=== PATIENT | male | born 1985 | race Caucasian/White ===

== ENCOUNTER 2019-06-22 09:12 | Emergency (ER) | payer MEDICAID, SELFPAY ==
[2019-06-22 09:14] VITALS: BP 159/84; PULSE 53; RESP 17; TEMP 36.5; O2SAT 100; BMI 22.4
[2019-06-22] MEDS: proMETHazine 25 MG/ML Syringe 12.5 MG IV (09:32)
[2019-06-22] MEDS: 0.9% Normal Saline 1,000 ML 1000 ML IV (09:33)
[2019-06-22 09:43] LABS: Absolute Lymphocyte Count 1.02 X10^3/uL (0.83-4.51); Absolute Neutrophil Count 13.1 X10^3/uL (2.0-7.7); Basophil# 0.06 X10^3/uL; Basophil% 0.4 % (0-1); Eosinophil# 0.01 X10^3/uL; Eosinophils% 0.1 % (0-5); Hematocrit 46.8 % (40-54); Hemoglobin 15.3 g/dL (13.0-16.5); Lymphocyte # 1.02 X10^3/ul (4.0); Lymphocyte % 6.9 % (19-41); Mean Corp Hgb Conc 32.7 g/dL (32-36); Mean Corpuscular Hgb 28.8 pg (27.0-32.0); Monocyte# 0.51 X10^3/uL; Monocyte% 3.5 % (0-10); NRBC Flagged by Analyzer 0 % (0-5); Neutrophil # 13.08 X10^3/uL (2.7-7.7); Neutrophil % 88.5 % (47-70); Platelet Count 317 K/mm3 (150-450); RBC Distribution Width CV 13.5 % (11.6-14.6); RBC Distribution Width SD 43.6 fl (35.1-43.9); Red Blood Count 5.32 M/mm3 (4.6-6.2); White Blood Count 14.8 K/mm3 (4.4-11.0)
[2019-06-22 10:02] LABS: AST(SGOT) 21 U/L (15-37); Alanine Aminotransfer ALT/SGPT 45 U/L (16-61); Albumin, Serum 4.1 g/dL (3.2-5.0); Alkaline Phosphatase 76 U/L (45-117); Anion Gap 8 (5-15); BUN 10 mg/dL (7-18); BUN/Creat Ratio 13.1 RATIO (10-20); Calcium,Total 9.5 mg/dL (8.5-10.1); Chloride 105 mmol/L (98-107); Creatinine, Serum 0.76 mg/dL (0.70-1.30); EST Glomerular Filtration Rate 126 mL/min (>60); Est Glom Filt Rate - Afr Amer 153 mL/min (>60); Estimated Creatinine Clearance 147.83 ml/min; Globulin 4.2 g/dL (2.2-4.2); Glucose 140 mg/dL (74-106); Lipase 114 U/L (73-393); Potassium 4.3 mmol/L (3.5-5.1); Protein, Total 8.3 g/dL (6.4-8.2); Sodium Level 139 mmol/L (136-145)
--- NOTE | 2019-06-22 10:11 | ED.VISSUMM ---
- ER Visit Summary Date of Service: 06/22/19 Chief Complaint: [Nausea and vomiting] History of Present Illness: The patient is a 34 M [presents to the emergency department with vomiting that started around 1:30 AM. Patient states he is thrown up about 4 5 times. He continues to complain of nausea. Patient has had chills. He denies any fever. He denies any diarrhea. He denies any abdominal pain. Denies eating any undercooked foods or suspicious foods. He has no medical history. No sick contacts. Patient use 1 of his 's Zofran which did not give him any relief.] Physical Examination: [HEENT-PERRLA, EOMI. Cranial nerves II through XII grossly intact. TMs clear. Mucous membranes moist. No adenopathy. Cardiovascular-regular rate and rhythm without murmur or ectopy Lungs-clear to auscultation, chest wall stable without crepitus or subcu emphysema Abdomen-normoactive bowel sounds, soft, nontender, no rebound or rigidity, no peritoneal signs. Extremities-intact ?4, normal range of motion, normal pulses, atraumatic] Test Results: [CBC with differential obtained showed a slightly elevated white blood cell count of 14.8, hemoglobin 15, hematocrit 47, platelets 317. Chemistries unremarkable. LFTs normal. Lipase was 114.] Emergency Department Course and Treatment: [Patient had an IV line established and was given a liter of the same fluid bolus. Patient was given Phenergan 12.5 mg IV.] Treatment Plan: [Patient will be given a prescription for Phenergan. Patient advised to follow-up with primary care physician in 3 to 5 days. Advised to return if persistent vomiting, dehydration, abdominal pain, or condition should worsen anyway.] Disposition: [Discharged home in stable condition] Impression: [Vomiting-suspect viral etiology] This note was generated with [employer] dictation software. It may contain incorrect words, spelling, and punctuation that were not noted in review of the chart prior to signing ED Disposition - Plan for ED Patient: Referrals: Anders Chandler DO [Primary Care Provider] -
--- NOTE | 2019-06-22 10:13 | DCINST.ED_ITS ---
ED Disposition - Plan for ED Patient: Instructions: VOMITING (8y-Adult) Prescriptions: proMETHazine tablet [Phenergan] 25 mg PO Q6H PRN PRN #10 tab PRN Reason: Nausea Transmission Status: Pending to [facility]/pharmacy #[id number] Referrals: Anders Chandler DO [Primary Care Provider] - 3-5 Days
[2019-06-22 10:20] VITALS: BP 132/84; PULSE 85; RESP 16; O2SAT 97
== END 2019-06-22 10:22 | disposition home or self-care (01) ==
PROVIDERS: Emergency Provider Emergency Medicine; PCP Family Medicine
DX: R11.2 Nausea with vomiting, unspecified (principal); Z72.0 Tobacco use
CPT/HCPCS: 80053; 83690; 85025; 96361; 96374; 96375; 99283; J7030; A4216

== ENCOUNTER → 2019-06-30 08:18 | Outpatient (CLI) | payer MEDICAID, SELFPAY ==
[2019-06-22 09:14] VITALS: BMI 22.4
--- NOTE | 2019-06-30 08:21 | RAD_ITS ---
STUDY: AIR-CONTRAST UPPER GI SERIES. REASON FOR EXAM: Male, 34 years old. Nausea, heartburn, feels like something stuck in throat -- bitter taste in mouth -- started 06-22-19 FLUOROSCOPY TIME (if supplied): ( 44 seconds. ) minutes/seconds TECHNIQUE: The patient ingested barium. Multiple images of the esophagus, stomach and duodenum were obtained. COMPARISON: None. FINDINGS: The esophagus is unremarkable. There is no evidence of gastroesophageal reflux. No mass lesion is seen. The stomach and duodenum are unremarkable. There is no evidence of ulceration. No mass lesions present. RAD/Upper GI Dual Contrast IMPRESSION: Unremarkable air-contrast upper GI series. Electronically Signed: Michael Kapoor, at 11:03 EDT , Service support ,
== END ==
DX: R10.13 Epigastric pain (principal)
CPT/HCPCS: 74246

== ENCOUNTER → 2019-07-01 09:40 | Outpatient (CLI) | payer MEDICAID, SELFPAY ==
[2019-06-22 09:14] VITALS: BMI 22.4
--- NOTE | 2019-07-01 09:44 | US_ITS ---
STUDY: ABDOMINAL ULTRASOUND - RIGHT UPPER QUADRANT REASON FOR VISIT: Male, 34 years old NAUSEA-DYSPEPIA- MIDLINE TENDERNESS TECHNIQUE: Ultrasound evaluation of the right upper quadrant was performed with real-time and static paz-scale imaging. TECHNICAL QUALITY: Adequate. COMPARISON: None. FINDINGS: Liver: The liver measures 16.3 cm. There is normal echogenicity of the liver. The bile ducts are within normal limits. There is hepatic color flow. The direction of portal flow is hepatopetal. There is no demonstrated mass lesion. Gallbladder: Normal distended gallbladder. The gallbladder wall measures 3.0 mm. There is a negative sonographic Still''s sign. There is no pericholecystic fluid. There are no gallstones. Common Bile Duct (C.B.D.): The common bile duct measures 4.0 mm. Pancreas: Normal size of the head, body and tail of the pancreas. There is normal echogenicity of the pancreas. There is no demonstrated pancreatic mass or cyst. Right Kidney: Normal size of the right kidney. The right kidney measures 11.7 cm x 6.5 cm x 4.6 cm. Normal renal cortex. The right cortex measures 1.3 cm. There is no demonstrated renal mass or cyst. There is no right hydronephrosis. US/Abdomen Limited IMPRESSION: Normal right upper quadrant ultrasound examination. Electronically Signed: Michael Kapoor, at 13:36 EDT , Service support ,
== END ==
DX: K31.9 Disease of stomach and duodenum, unspecified (principal)
CPT/HCPCS: 76705

== ENCOUNTER 2019-07-27 15:26 | Emergency (ER) | payer MEDICAID, SELFPAY ==
[2019-07-27 15:26] VITALS: BP 112/75; PULSE 76; RESP 16; TEMP 36.5
[2019-07-27 15:27] VITALS: BP 112/75; PULSE 76; RESP 16; TEMP 36.5; BMI 22.4
--- NOTE | 2019-07-27 16:12 | ED.VISSUMM ---
- ER Visit Summary Date of Service: 07/27/19 Chief Complaint: Toe bleeding History of Present Illness: The patient is a 34 M no significant past medical history. Patient's had intermittent rectal bleeding for the last 1-1/2 months. He has had blood work that was unremarkable. He has not had upper or lower endoscopy done. He denies any pain. He is on no blood thinners. He denies any hematemesis nor melena. Physical Examination: Well-appearing 34-year-old male. No acute distress. Vital signs are stable afebrile. H EENT exam normal. Neck nontender. Lungs clear to auscultation bilaterally. Heart regular rhythm no murmur. Abdomen soft nontender normal bowel sounds no peritoneal signs. Patient is moving all 4 extremities. Skin unremarkable. Rectal exam normal rectal tone. No mass. No blood. Currently there is no black or bloody stool. There are no external hemorrhoids. Neurologically is awake and alert with no focal motor deficits. Test Results: CBC shows no acute abnormality. White count of 10. Hemoglobin 13.3. Hematocrit 40. Emergency Department Course and Treatment: Patient clinically looks well. Blood count of be obtained. Lungs had stable does not appear that he is having significant blood loss be discharged home with outpatient follow-up to have colonoscopy done. Repeat exam patient is doing well at 5:01 PM. Treatment Plan: Outpatient follow-up for colonoscopy. Disposition: Discharge Impression: Rectal bleeding of uncertain etiology This note was generated with [employer] dictation software. It may contain incorrect words, spelling, and punctuation that were not noted in review of the chart prior to signing ED Disposition - Plan for ED Patient: Referrals: Kale Cosby MD [Primary Care Provider] -
[2019-07-27 16:25] LABS: Hematocrit 40.9 % (40-54); Hemoglobin 13.3 g/dL (13.0-16.5); Mean Corp Hgb Conc 32.5 g/dL (32-36); Mean Corpuscular Hgb 28.5 pg (27.0-32.0); Mean Corpuscular Volume 87.8 fL (80-94); Mean Platelet Vol. 10.8 fl (6.2-12.0); Platelet Count 226 K/mm3 (150-450); RBC Distribution Width CV 13.9 % (11.6-14.6); RBC Distribution Width SD 44.7 fl (35.1-43.9); Red Blood Count 4.66 M/mm3 (4.6-6.2); White Blood Count 10.4 K/mm3 (4.4-11.0)
--- NOTE | 2019-07-27 17:04 | ED.DEP ---
ED Disposition - Plan for ED Patient: Disposition: Home or Assisted Living Instructions: ED Hematochezia Stable Referrals: Jaciel Jackson MD [STAFF PHYSICIAN] - As soon as possible Additional Instructions: Call and follow-up with Dr. Jaciel Jackson to get an appointment for possible colonoscopy.
[2019-07-27 17:20] VITALS: BP 125/67; PULSE 58; RESP 16; O2SAT 98
== END 2019-07-27 17:21 | disposition home or self-care (01) ==
PROVIDERS: Emergency Provider Emergency Medicine
DX: K62.5 Hemorrhage of anus and rectum (principal); Z72.0 Tobacco use
CPT/HCPCS: 85027; 99283; A4216

== ENCOUNTER 2019-08-10 06:49 | Day surgery (SDC) | payer MEDICAID, SELFPAY ==
[2019-08-03 08:11] VITALS: BMI 22.4
[2019-08-10 07:09] VITALS: BP 121/61; PULSE 58; RESP 15; TEMP 36.2; O2SAT 100; BMI 22.1
[2019-08-10] MEDS: Lactated Ringers 1,000 ML 100 ML IV (07:19)
--- NOTE | 2019-08-10 07:42 | HP.PCM_ITS ---
Problem List (1) GI bleed Status: Acute Qualifiers: GI bleed type/associated pathology: anorectal hemorrhage Qualified Code(s): K62.5 - Hemorrhage of anus and rectum History and Physical Date of Admission: 08/10/19 Intake Vital Signs 08/03/19 BMI 22.4 Intake Visit Reasons: F/U ER 07/26 VISIT [facility] RECTAL BLEEDING/TELE. Chief Complaint: Rectal bleeding and abdominal pain with nausea Allergies No Known Allergies Allergy (Verified 06/22/19 09:13) FORMERLY [facility], 1928–1983 Social History (Updated 08/03/19 @ 08:[address] Jaciel Jackson MD) Smoking Status: Current some day smoker HPI HPI Chief Complaint: Rectal bleeding and abdominal pain with nausea Details: Patient was informed that this visit will be billed to patient. This visit was conducted during - pandemic. CONSTANTINE ASH, is a 34 M who presents to the office today for rectal bleeding. The patient was in the emergency room after having bleeding with clots. The patient reports is been going on for about 2 months. He is having lower abdominal pain as well as nausea. He is experiencing bright red and dark red blood with occasional clots. He says that he is never had this problem in the past. He denies any family history of colon cancer. He says that nothing is making it worse or better. There is no radiation of the pain. ROS Const Constitutional: No anorexia, fatigue or abnormal sleep pattern ENT ENT: No abnormal hearing Resp Respiratory: No cough, change in phlegm color or chest congestion Cardio Cardiology: No chest pain at rest Gastro GI: Positive for abdominal pain, constipation, diarrhea, blood in stool, Black,tarry stools and nausea/dyspepsia Genitourinary Male: No difficulty urinating Musc Musculoskeletal: No abnormal walking or joint swelling Skin Skin: No hair loss, change in hair or yellowing of the skin Neuro Neurology: No abnormal walking or abnormal hearing Psych Psychiatric: No abnormal sleep pattern Endo Endocrine: No fatigue Exam Const General: cooperative, healthy appearing, comfortable Chest Chest palpation & inspection: normal inspection of the chest Resp Effort & Inspection: normal respiratory effort GI Inspection: normal to inspection Assessment & Plan Problems 1. Blood in stool K92.1 2. Lower abdominal pain R10.30 Plan Patient has noted that he has had blood in his stool for about 2 months. He is also having nausea and lower abdominal pain. He was in the emergency room and had an ultrasound which showed no gallstones or abnormalities with the gallbladder. The patient was started on promethazine with no improvement. Patient is experiencing nausea as well as bleeding per rectum. I recommend EGD and colonoscopy and I did start him on a PPI. I explained endoscopy in detail to the patient. I explained the risks including but not limited to stroke or heart attack with anesthesia, perforation of the GI tract, bleeding, infection. I explained that any of these could necessitate further emergency surgery. The patient understands and all questions were answered sufficiently. The patient wishes to proceed with procedure. On 06/30/2019 the [facility] ([facility]) Public Order signed by [facility] Director Chata Gonzales M.D., regarding the Management of Non-Essential Surgeries and Procedures for the purpose of preserving Personal Protective Equipment (PPE) and critical hospital capacity and resources within [place] went into effect as of 07/01/2019 at 5:00PM. According to the [facility] Public Order: This action will remain in full force and effect until the State of Emergency declared by the Governor no longer exists or the Director of the [facility] rescinds or modifies this Order. This [facility] order stated all non-essential or elective surgeries and procedures that utilize PPE should be delayed unless there is undue risk to the current or future health of a patient. After reviewing the aforementioned [facility] Public Order and the patients clinical case, I have determined that the scheduled procedure meets the criteria to go forward. Jaciel Jackson MD Pager: [facility] [address] [place] [address], [place] [address] Office: Addendum: I have re-examined the patient. There are no clinical changes since date of exam. Physical exam: Patient is alert and oriented x3. Lungs are clear to auscultation bilaterally and abdomen is soft and nontender nondistended. Jaciel Jackson MD Pager: [facility] [address] [place] [address], [address] [place] [address] Office:
--- NOTE | 2019-08-10 08:05 | EGD_PTH ---
PATIENT: CONSTANTINE ASH LOC: EN U#:[id number] AGE/SX: 34/M ROOM: RE08/10/[address]: Dr. Jaciel Jackson MD : 1985 BED: DIS: 08/10/2019 SPEC #: [id number] RECD: 08/10/19 11:12 STATUS: DESEAN MADDIE #: [id number] KRISTINA: 08/10/19 08:[address]: Jaciel Jackson DEPT: SURGICAL PATHOLOGY RECD BY: Cherry Jimenez ENTERED: 08/10/19 12:07 SP TYPE: EGD BIOPSY OTHR DR: Dr. Kale Cosby MD Tissues: A - Gastric mucous membrane B - Rectum, NOS Procedures: Special Stain Group II Surgery Specimen Level IV Alcian Blue/PAS (control) HEADER OPERATION: Colonoscopy, EGD ([facility] [place] PRE-OP DIAGNOSIS: Abdominal pain; blood in stool TISSUE SUBMITTED: A - GE junction biopsy, B - Rectal polyps MICROSCOPIC DIAGNOSIS A. GE junction, biopsy: Chronic inflammation. Focal changes of reflux. No evidence of Church's specialized epithelium. See comment. B. Rectal polyps, biopsy: Fragments of tubular adenoma. AM:blayne 08/11/19 COMMENT A. Alcian blue/PAS stain with matched control supports the above diagnosis. MICROSCOPIC DESCRIPTION Slides are reviewed. GROSS DESCRIPTION A - Received in fixative is one container labeled with the patient's name and designated GE junction biopsy. The specimen consists of one irregular fragment of light garcia soft tissue that measures 0.3 x 0.3 x 0.1 cm. The specimen is totally submitted in one cassette. B - Received in fixative is one container labeled with the patient's name and designated rectal polyps. The specimen consists of two irregular fragments of light garcia soft tissue that in aggregate measure 1 x 0.5 x 0.3 cm. The specimen is totally submitted in one cassette. / AM:blayne 08/10/19 TC:5 CPT: 55414 x2, 03839 x1
[2019-08-10 08:32] VITALS: BP 121/61; BP 128/102; PULSE 55; RESP 14; TEMP 36.2; O2SAT 98
[2019-08-10 08:35] VITALS: BP 121/61; BP 143/130; PULSE 60; RESP 15; O2SAT 100
[2019-08-10 08:40] VITALS: BP 121/61; BP 93/53; PULSE 53; RESP 16; O2SAT 98
[2019-08-10 08:45] VITALS: BP 109/48; BP 121/61; PULSE 52; RESP 16; TEMP 36.5; O2SAT 100
[2019-08-10 09:14] VITALS: BP 121/61
--- NOTE | 2019-08-12 12:29 | OP.CCLET_ITS ---
08/12/2019 Kael Cosby Re : Colonoscopy procedure for Martin Ness Dear Alea This procedure was performed on Saturday, August 10, 2019. My impressions and recommendations are as follows: Impressions : - One polyp in the rectum, removed with a hot snare. Resected and retrieved. - Internal hemorrhoids. - The examination was otherwise normal on direct and retroflexion views. Recommendations : - Discharge patient to home. - Resume previous diet. - Continue present medications. - Repeat colonoscopy for surveillance based on pathology results. My findings are described in the full procedure note, which is enclosed. If I can be of further assistance, please feel free to contact me at Doctor phone number(s): , Work: . Sincerely, Jaciel Jackson MD 08/10/2019 8:33:53 AM This report has been signed electronically.
--- NOTE | 2019-08-12 12:29 | OP.COLON_ITS ---
Patient Name: Martin Ness Procedure Date: 08/10/2019 8:15 AM Date of : 1985 Age: 34 Procedure: Colonoscopy Indications: Hematochezia, Melena Providers: Jaciel Jackson MD Medicines: Monitored Anesthesia Care Patient Profile: This is a 34 year old male. Refer to note in patient chart for documentation of history and physical. Last Colonoscopy: none. The patient's first colonoscopy is today. Complications: No immediate complications. Estimated blood loss: Minimal. Procedure: Pre-Anesthesia Assessment: - Prior to the procedure, a History and Physical was performed, and patient medications and allergies were reviewed. The patient's tolerance of previous anesthesia was also reviewed. The risks and benefits of the procedure and the sedation options and risks were discussed with the patient. All questions were answered, and informed consent was obtained. Prior Anticoagulants: The patient has taken no previous anticoagulant or antiplatelet agents. After reviewing the risks and benefits, the patient was deemed in satisfactory condition to undergo the procedure. After I obtained informed consent, the scope was passed under direct vision. Throughout the procedure, the patient's blood pressure, pulse, and oxygen saturations were monitored continuously. The Colonoscope was introduced through the anus and advanced to the cecum, identified by appendiceal orifice and ileocecal valve. The colonoscopy was performed without difficulty. The patient tolerated the procedure well. The quality of the bowel preparation was good. Scope In: 8:17:28 AM Scope Withdrawal Time 0 hours 5 minutes 29 seconds Scope Out: 8:27:13 AM Total Procedure Duration Time 0 hours 9 minutes 45 seconds Findings: A polyp was found in the rectum. The polyp was pedunculated. The polyp was removed with a hot snare. Resection and retrieval were complete. Internal hemorrhoids were found during retroflexion. The hemorrhoids were Grade II (internal hemorrhoids that prolapse but reduce spontaneously). The exam was otherwise without abnormality on direct and retroflexion views. Impression: - One polyp in the rectum, removed with a hot snare. Resected and retrieved. - Internal hemorrhoids. - The examination was otherwise normal on direct and retroflexion views. Recommendation: - Discharge patient to home. - Resume previous diet. - Continue present medications. - Repeat colonoscopy for surveillance based on pathology results. Procedure Code(s): --- Professional --- 37409, Colonoscopy, flexible; with removal of tumor(s), polyp(s), or other lesion(s) by snare technique Diagnosis Code(s): --- Professional --- K62.1, Rectal polyp K64.1, Second degree hemorrhoids K92.1, Melena (includes Hematochezia) CPT copyright 2017 [employer]. All rights reserved. The codes documented in this report are preliminary and upon medical assisting instructor review may be revised to meet current compliance requirements. Jaciel Jackson MD 08/10/2019 8:33:53 AM This report has been signed electronically. Number of Addenda: 0 Note Initiated On: 08/10/2019 8:15 AM
--- NOTE | 2019-08-12 12:29 | OP.EGD_ITS ---
Patient Name: Martin Ness Procedure Date: 08/10/2019 7:59 AM Date of : 1985 Age: 34 Procedure: Upper GI endoscopy Indications: Hematochezia, Melena Providers: Jaciel Jackson MD Medicines: Monitored Anesthesia Care Patient Profile: This is a 34 year old male. Refer to note in patient chart for documentation of history and physical. Complications: No immediate complications. Estimated blood loss: Minimal. Procedure: Pre-Anesthesia Assessment: - Prior to the procedure, a History and Physical was performed, and patient medications and allergies were reviewed. The patient's tolerance of previous anesthesia was also reviewed. The risks and benefits of the procedure and the sedation options and risks were discussed with the patient. All questions were answered, and informed consent was obtained. Prior Anticoagulants: The patient has taken no previous anticoagulant or antiplatelet agents. After reviewing the risks and benefits, the patient was deemed in satisfactory condition to undergo the procedure. After obtaining informed consent, the endoscope was passed under direct vision. Throughout the procedure, the patient's blood pressure, pulse, and oxygen saturations were monitored continuously. The gastroscope was introduced through the mouth, and advanced to the second part of duodenum. The upper GI endoscopy was accomplished without difficulty. The patient tolerated the procedure well. Scope In: 8:12:18 AM Scope Out: 8:14:45 AM Total Procedure Duration Time 0 hours 2 minutes 27 seconds Findings: Two linear esophageal ulcers with no bleeding and no stigmata of recent bleeding were found. Biopsies were taken with a cold forceps for histology. The stomach was normal. The examined duodenum was normal. Impression: - Non-bleeding esophageal ulcers. Biopsied. - Normal stomach. - Normal examined duodenum. Recommendation: - Resume previous diet. - Continue present medications. Procedure Code(s): --- Professional --- 94428, Esophagogastroduodenoscopy, flexible, transoral; with biopsy, single or multiple Diagnosis Code(s): --- Professional --- K22.10, Ulcer of esophagus without bleeding K92.1, Melena (includes Hematochezia) CPT copyright 2017 [employer]. All rights reserved. The codes documented in this report are preliminary and upon crankshaft balancer review may be revised to meet current compliance requirements. Jaciel Jackson MD 08/10/2019 8:32:08 AM This report has been signed electronically. Number of Addenda: 0 Note Initiated On: 08/10/2019 7:59 AM
--- NOTE | 2019-08-12 12:29 | OP.CCLET_ITS ---
08/12/2019 Kale Cosby Re : Upper GI endoscopy procedure for Martin Ness Dear Alea This procedure was performed on Saturday, August 10, 2019. My impressions and recommendations are as follows: Impressions : - Non-bleeding esophageal ulcers. Biopsied. - Normal stomach. - Normal examined duodenum. Recommendations : - Resume previous diet. - Continue present medications. My findings are described in the full procedure note, which is enclosed. If I can be of further assistance, please feel free to contact me at Doctor phone number(s): , Work: . Sincerely, Jaciel Jackson MD 08/10/2019 8:32:08 AM This report has been signed electronically.
== END 2019-08-10 09:15 | disposition home or self-care (01) ==
LOC: EN 06:52 → AC 06:52
PROVIDERS: Visit Provider Surgery
PROC: 0DJD8ZZ Inspection of Lower Intestinal Tract, Via Natural or Artificial Opening Endoscopic (ICD-10-PCS; CPT 45378; principal; 2019-08-10 08:00)
DX: D12.8 Benign neoplasm of rectum (principal); K22.10 Ulcer of esophagus without bleeding; K64.1 Second degree hemorrhoids; K92.1 Melena; F43.21 Adjustment disorder with depressed mood; F17.290 Nicotine dependence, other tobacco product, uncomplicated
CPT/HCPCS: 43239; 45385; 88305; 88313; J7120; J2405

== ENCOUNTER 2023-03-22 14:37 | Emergency (ER) | payer MEDICAID, SELFPAY ==
[2023-03-22 14:38] VITALS: BP 155/95; PULSE 95; RESP 16; TEMP 36.6; O2SAT 99; BMI 25.9
[2023-03-22 16:03] VITALS: BP 132/78; PULSE 98; RESP 14; O2SAT 100
--- NOTE | 2023-03-22 16:28 | RAD_ITS ---
INDICATION: Injury/Pain EXAMINATION/TECHNIQUE: X-RAY - RIGHT HAND XR Fingers 3 VIEWS COMPARISON: FINDINGS: SOFT TISSUES: There is a laceration at the midportion of the fifth finger. No radiopaque foreign body. BONES/JOINTS: No acute fracture or subluxation.. Normal alignment. Preservation of the joint space.. No sclerotic or destructive changes observed. RAD/Finger(s) Min 2 Views IMPRESSION: Laceration of the fifth finger. Electronically Signed: Mario Centeno DO at 16:55 EST ,
--- NOTE | 2023-03-22 16:40 | EDS_ITS ---
HPI History of Present Illness Chief Complaint: Laceration Informant: patient Narrative Narrative: Patient is a 37-year-old male, [id number] with unknown last tetanus status presenting with injury to his right thumb and pinky finger. He was using gardening selene at work. This is a work-related injury. He accidentally cut his right thumb and right pinky finger. He initially went to urgent care however there they were concerned about a tendon injury and recommend he come to the emergency room. He has no other complaints or injuries reported at this time. Tetanus Immunization: Unknown [facility] Medical History Acute anxiety Depression Home Medications omeprazole 20 mg capsule,delayed release 20 mg PO DAILY #60 caps 08/03/19 [Rx Last Taken Unknown] naproxen sodium 220 mg tablet 220 mg PO BID 08/06/19 [History Last Taken Unknown] oxazepam 10 mg capsule 10 mg PO TID 03/22/23 [History Last Taken Unknown] Allergy/AdvReac Type Severity Reaction Status Date / Time No Known Allergies Allergy Verified 03/22/23 14:38 Social History Smoking Status: Current every day smoker tobacco type: cigarettes ROS ROS ED Constitutional Constitutional ED: Denies chills or fever(s) Gastrointestinal Gastrointestinal: Denies nausea or vomiting Musculoskeletal Musculoskeletal: Reports other Details: right 1st an d5th finger pain Integumentary Reports other Details: laceration to right 1st and 5th fingers Neurologic Neurologic: Reports paresthesias Psychiatric Psychiatric: Denies anxiety Hematologic/Lymphatic Hematologic/Lymphatic: Denies easy bleeding or easy bruising EXAM Physical Exam Const Vital Signs: 03/22/23 14:38 03/22/23 16:03 03/22/23 18:29 Temperature 97.8 F Temperature Source Temporal Pulse Rate 95 98 91 Respiratory Rate 16 14 14 Blood Pressure 155/95 H 132/78 H 139/67 H Blood Pressure Mean 115 96 91 Pulse Ox 99 100 99 Oxygen Delivery Method Room Air Room Air Positive well nourished and well developed General Appearance ED: well developed and NAD HEENT atraumatic Neck full ROM Chest Wall inspection of chest normal Resp normal respiratory effort Cardio regular rhythm Rate: regular rate Extremity normal to inspection and full ROM Extremity Narrative: Normal extensor and flexor mechanism specifically of the right fifth finger and the thumb. No obvious tendinous injury General Extremety ED: Negative for deformity General Extremity: Negative for deformity Neuro oriented x3 and moves all extremities Neuro Narrative: subjective paresthesia to the distal aspect of the right fifth finger Psych mental status grossly normal and thought process normal Skin Skin Narrative: 1.5 cm slightly irregular laceration to the medial aspect of the thumb overlying the interphalangeal joint. Approximately 1 cm of it is full-thickness. Of the right fifth finger along the medial aspect level of the PIP there is a 2 cm full-thickness laceration with exposure of vessel but no active bleeding. On the lateral aspect at the same level there is a 1 cm full-thickness laceration as well. PROC Procedures Lacerations right thumb : Length: 0.59 in Depth: Skin Shape: Linear Prep: Chlorhexadine Laceration repair: Nerve block Irrigated (ml): 250 Number of Sutures/[place]: 2 Suture Information: Ethilon, Simple and 4-0 right pinky : Length: 1.18 in Depth: Sub Q Shape: Linear Prep: Chlorhexadine Laceration repair: Digital block, Lidocaine and Skin sutures Irrigated (ml): 250 Number of Sutures/[place]: 5 Suture Information: Ethilon, Simple and 4-0 MDM MDM MDM Narrative Medical decision making narrative: Patient is evaluated for lacerations to his right thumb and pinky fingers. X- ray obtained to rule out any associated fracture. Hand is soaked and thoroughly. Tetanus is updated. No obvious tenderness injury or deformity. I do not think it needs an emergent hand evaluation/transfer. Was given Motrin in the ER with adequate pain control. See procedure note for suture repair. Patient given return precautions, signs of infection and suture care instructions. Charged home in stable and improved condition. Placed in a finger splint for the pinky finger. Radiography Diagnostic Testing: Clinical Impression(s) from Imaging Studies Finger X-Ray 03/22/23 16:28 IMPRESSION: Laceration of the fifth finger. Electronically Signed: Mario Centeno DO at 16:55 EST Reading Location ID and State: [facility] / [place] Tel [phone], Service support , Discharge Plan Triage Chief Complaint: Laceration ED Provider: Iona Zaragoza Dx/Rx/DC Orders Clinical Impression: Laceration of right little finger, Laceration of right thumb Instructions: ED Laceration, Hand: All Closures Prescriptions: No Action omeprazole 20 mg capsule,delayed release(DR/EC) 20 mg PO DAILY Qty: 60 2RF oxazepam 10 mg capsule 10 mg PO TID naproxen sodium 220 MG tablet 220 mg PO BID Primary Care Provider: Care Physician,No Primary Referrals: [facility] [Group of Physicians] - 10 Day for suture removal Care Physician,No Primary [Primary Care Provider] - Activity Restrictions/Additional Instructions: Sutures need removed in approximately 10 days. Alternate ibuprofen and Tylenol for pain. Disposition Disposition: Home, Self Care Discharge Date/Time: 03/22/23 18:51
[2023-03-22] MEDS: Lidocaine 1% (20 ml mdv) 20 ML Vial INFILT (16:48)
[2023-03-22] MEDS: Ibuprofen 600 MG Tablet PO (16:48)
[2023-03-22] MEDS: Diphth,Pertuss(Acell),Tet Vac 0.5 ML Vial IM (16:48)
[2023-03-22 18:29] VITALS: BP 139/67; PULSE 91; RESP 14; O2SAT 99
== END 2023-03-22 18:51 | disposition home or self-care (01) ==
PROVIDERS: Emergency Provider Emergency Medicine; Visit Provider Emergency Medicine
DX: S61.011A Laceration without foreign body of right thumb without damage to nail, initial encounter (principal); S61.216A Laceration without foreign body of right little finger without damage to nail, initial encounter; Z23 Encounter for immunization; Y99.0 Civilian activity done for income or pay; W27.1XXA Contact with garden tool, initial encounter; F17.210 Nicotine dependence, cigarettes, uncomplicated; Z79.899 Other long term (current) drug therapy
CPT/HCPCS: 12002; 73140; 90471; 90715; 99283

== ENCOUNTER 2023-08-19 09:16 | Emergency (ER) | payer SELFPAY ==
[2023-08-19 09:16] VITALS: BP 177/115; PULSE 69; RESP 18; O2SAT 97
[2023-08-19 09:17] VITALS: BP 169/121; PULSE 94; RESP 16; TEMP 36.3; O2SAT 99; BMI 27.3
--- NOTE | 2023-08-19 10:29 | CT_ITS ---
STUDY: CT ABDOMEN AND PELVIS WITH CONTRAST REASON FOR EXAM: Male, 38 years old. Abdominal pain. Nausea and vomiting. Constipation. RADIATION DOSAGE (If Supplied By Facility): CTDIvol = ( 10.83 ) mGy, DLP = ( 608.09 ) mGycm TECHNIQUE: Transaxial images were obtained from the dome of the diaphragm to the symphysis pubis without oral contrast. IV 100mL Isovue-300 was administered. Sagittal and coronal images were reconstructed. Individualized dose optimization techniques were used for this CT. COMPARISON: None. FINDINGS: The visualized lung bases are unremarkable. The visualized portions of the heart are within normal limits. Normal liver. Normal gallbladder and extrahepatic biliary system. Normal spleen. Normal pancreas. Normal bilateral adrenal glands. Normal right kidney. Normal left kidney. There is a small hiatal hernia. Normal small intestine. Moderate amount of fecal material is seen in the right hemicolon. The appendix is visualized and appears normal. Normal abdominal aorta. Normal inferior vena cava. Normal retroperitoneum. Normal urinary bladder. There are prostatic calcifications. Normal abdominal wall. Normal osseous structures. CT/Abdomen/Pelvis W IV Cont ONLY IMPRESSION: Moderate amount of fecal material is seen in the right hemicolon. Electronically Signed: Michael Kapoor MD at 12:11 EDT ,
[2023-08-19] MEDS: Metoclopramide 10 MG/2 ML Vial IV (10:32)
[2023-08-19] MEDS: 0.9% Normal Saline (1000mL) 1,000 ML 999 ML IV (10:32)
[2023-08-19 10:37] LABS: Absolute Lymphocyte Count 3.04 X10^3/uL (0.83-4.51); Absolute Neutrophil Count 10.9 X10^3/uL (2.0-7.7); Basophil# 0.06 X10^3/uL; Basophil% 0.4 % (0-1); Eosinophil# 0.04 X10^3/uL; Eosinophils% 0.3 % (0-5); Hematocrit 52.2 % (40-54); Hemoglobin 17.5 g/dL (13.0-16.5); Lymphocyte # 3.04 X10^3/ul (0.83-4.51); Lymphocyte % 19.7 % (19-41); Mean Corp Hgb Conc 33.5 g/dL (32-36); Mean Corpuscular Hgb 28.8 pg (27.0-32.0); Mean Corpuscular Volume 85.9 fL (80-94); Mean Platelet Vol. 11.3 fl (6.2-12.0); Monocyte# 1.33 X10^3/uL; Monocyte% 8.6 % (0-10); NRBC Flagged by Analyzer 0 % (0-5); Neutrophil # 10.87 X10^3/uL (2.7-7.7); Neutrophil % 70.5 % (47-70); Platelet Count 332 K/mm3 (150-450); RBC Distribution Width CV 12.9 % (11.6-14.6); Red Blood Count 6.08 M/mm3 (4.6-6.2); White Blood Count 15.4 K/mm3 (4.4-11.0)
[2023-08-19 10:48] LABS: AST(SGOT) 15 U/L (15-37); Alanine Aminotransfer ALT/SGPT 25 U/L (16-61); Albumin, Serum 4.2 g/dL (3.2-5.0); Alkaline Phosphatase 71 U/L (45-117); Anion Gap 10 (5-15); BUN 15 mg/dL (7-18); Calcium,Total 10.4 mg/dL (8.5-10.1); Chloride 104 mmol/L (98-107); Creatinine, Serum 1.25 mg/dL (0.70-1.30); EST Glomerular Filtration Rate 69 mL/min (>60); Est Glom Filt Rate - Afr Amer 84 mL/min (>60); Estimated Creatinine Clearance 84.36 ml/min; Globulin 4.4 g/dL (2.2-4.2); Glucose 129 mg/dL (74-106); Lipase 56 U/L (13-75); Potassium 3.5 mmol/L (3.5-5.1); Protein, Total 8.6 g/dL (6.4-8.2); Sodium Level 139 mmol/L (136-145)
[2023-08-19 11:00] VITALS: BP 134/97; PULSE 65; RESP 14; O2SAT 98
--- NOTE | 2023-08-19 11:16 | ED.VIS.GI ---
HPI HPI - GI History of Present Illness Chief Complaint: Nausea/Vomiting Narrative Narrative: 38-year-old male presenting with nausea, vomiting, constipation. He states he has a history of GI bleed in the past but otherwise no significant medical history. He states has been constipated since which is which is 5 days. He is not taking any stool softeners or laxative. He feels like he is to have a bowel movement. He is not vomiting he states is not able to hold down any food or fluids. He states he has a small amount of blood in his stool from straining. He states that he feels like something is protruding from his rectum. Patient states that he does smoke marijuana but he has no history of cannabinoid hyperemesis syndrome and he has no history of cyclic vomiting. He states that he really does not have a lot of abdominal pain however. PFSH PFS Medical History Acute anxiety Depression Home Medications omeprazole 20 mg capsule,delayed release 20 mg PO DAILY #60 caps 08/03/19 [Rx Last Taken Unknown] naproxen sodium 220 mg tablet 220 mg PO BID 08/06/19 [History Last Taken Unknown] oxazepam 10 mg capsule 10 mg PO TID 03/22/23 [History Last Taken Unknown] Allergy/AdvReac Type Severity Reaction Status Date / Time No Known Allergies Allergy Verified 08/19/23 09:17 Social History Smoking Status: Current every day smoker tobacco type: cigarettes ROS ROS ED Constitutional Constitutional ED: Denies chills, fever(s) or sweats Eyes Eyes: Denies blurry vision or change in vision ENT ENT ED: Denies ear pain or sore throat Cardiovascular Cardiovascular: Denies chest pain, palpitations or racing heartbeat Respiratory/Chest Respiratory/Chest: Denies cough, dyspnea or sputum Gastrointestinal Gastrointestinal: Reports constipation, nausea and vomiting; Denies diarrhea Genitourinary Genitourinary ED: Denies dysuria, hematuria or urinary frequency Musculoskeletal Musculoskeletal: Denies arthralgias, myalgias or neck pain Integumentary Denies abscess, Abrasions or rash Neurologic Neurologic: Denies headache(s), paresthesias or weakness Psychiatric Psychiatric: Denies anxiety, depression, suicidal ideation or suicidal thoughts Endocrine Endocrinology: Denies polydipsia or polyuria EXAM Physical Exam Const Vital Signs: 08/19/23 09:17 08/19/23 09:16 08/19/23 11:00 Temperature 97.4 F L Temperature Source Temporal Pulse Rate 94 69 65 Respiratory Rate 16 18 14 Blood Pressure 169/121 H 177/115 H 134/97 H Blood Pressure Mean 137 135 109 Pulse Ox 99 97 98 Oxygen Delivery Method Room Air Room Air Positive well nourished General Appearance ED: NAD; Negative for pallor HEENT Reports moist mucous membranes normocephalic and atraumatic Eyes PERRL and EOMs intact bilaterally Resp normal respiratory effort Auscultation: Negative for rales or rhonchi Cardio regular rate and regular rhythm GI Auscultation: hyperactive bowel sounds Palpation: Negative for guarding or rigid Extremity full ROM Neuro CN's II-XII intact bilaterally Sensorium / Orientation: alert Motor Exam: strength 5/5 throughout Psych mental status grossly normal Mood & Affect: Negative for anxious or tearful Skin General Skin Exam: Negative for jaundice or pallor MDM MDM MDM Narrative Medical decision making narrative: Patient presenting with nausea/vomiting/constipation. Patient presenting with right flank pain. Differential includes colitis, diverticulitis, gastritis, pancreatitis, acute cholecystitis, constipation, appendicitis, UTI, pyelonephritis, calculi, ureteral calculi, obstruction, malignancy, dehydration, electrolyte abnormalities. Patient medicated with Phenergan and IV fluids. CBC was obtained which shows a white blood cell count of 15.4. This is likely reactive secondary to vomiting. Hemoglobin 17.5. Platelets 232. Renal function electrolytes within normal limits. LFTs are normal. Lipase is normal. Patient feeling better on reevaluation at 12:[address] of the abdomen pelvis shows nothing acute except for right-sided stool. Patient stating he is not hungry. He is given Zofran and Reglan for home to alternate. He is counseled to use MiraLAX for constipation. Impression: 1. Nausea/vomiting 2. Constipation 3. Leukocytosis Lab Data Attestation: I reviewed the patient's lab results. Labs: Laboratory Results - last 24 hr 08/19/23 09:35 WBC 15.4 H RBC 6.08 Hgb 17.5 H Hct 52.2 MCV 85.9 MCH 28.8 MCHC 33.5 RDW Std Deviation 40.0 RDW Coeff of [place] 12.9 Plt Count 332 MPV 11.3 Immature Gran % (Auto) 0.500 Neut % (Auto) 70.5 H Lymph % (Auto) 19.7 [place] % (Auto) 8.6 Eos % (Auto) 0.3 Baso % (Auto) 0.4 Absolute Neuts (auto) 10.9 H Absolute Lymphs (auto) 3.04 Nucleated RBC % 0 Sodium 139 Potassium 3.5 Chloride 104 Carbon Dioxide 25.0 Anion Gap 10 BUN 15 Creatinine 1.25 Estim Creat Clear Calc 84.36 Est GFR (MDRD) Af Amer 84 Est GFR (MDRD) Non-Af 69 BUN/Creatinine Ratio 12.0 Glucose 129 H Calcium 10.4 H Total Bilirubin 0.40 AST 15 ALT 25 Alkaline Phosphatase 71 Total Protein 8.6 H Albumin 4.2 Globulin 4.4 H Albumin/Globulin Ratio 1.0 Lipase 56 Radiography Diagnostic Testing: Clinical Impression(s) from Imaging Studies Abdomen/Pelvis CT 08/19/23 10:29 IMPRESSION: Moderate amount of fecal material is seen in the right hemicolon. Electronically Signed: Michael Kapoor MD at 12:11 EDT , Discharge Plan Triage Chief Complaint: Nausea/Vomiting ED Provider: Rio Rangel Dx/Rx/DC Orders Instructions: ED Constipation (Adult), ED Vomiting (Adult) Prescriptions: No Action omeprazole 20 mg capsule,delayed release(DR/EC) 20 mg PO DAILY Qty: 60 2RF oxazepam 10 mg capsule 10 mg PO TID naproxen sodium 220 MG tablet 220 mg PO BID Primary Care Provider: Care Physician,No Primary [facility]-5 Days Care Physician,No Primary [Primary Care Provider] - Disposition Disposition: Home, Self Care
[2023-08-19 12:44] VITALS: BP 153/72; PULSE 81; RESP 16; TEMP 36.6; O2SAT 99
== END 2023-08-19 12:46 | disposition home or self-care (01) ==
PROVIDERS: Emergency Provider Student in an Organized Health Care Education/Training Program; Visit Provider Student in an Organized Health Care Education/Training Program
DX: R11.2 Nausea with vomiting, unspecified (principal); D72.829 Elevated white blood cell count, unspecified; K59.00 Constipation, unspecified; K92.1 Melena; F32.A Depression, unspecified; F41.9 Anxiety disorder, unspecified; F17.210 Nicotine dependence, cigarettes, uncomplicated; Z79.899 Other long term (current) drug therapy
CPT/HCPCS: 74177; 80053; 83690; 85025; 96361; 96374; 99283; Q9967; A4216